=== PATIENT | male | born 1965 ===

== ENCOUNTER 2022-03-04 17:43 | Emergency (ER) ==
[~2022-03-04] VITALS: Ht 167.6 cm; Wt 65.0 kg
[2022-03-04] MEDS ORDERED: ACETAMINOPHEN 500 MG TAB PO ONE (18:15)
[2022-03-04 19:00] LABS: RSV AMPLIFICATION NEGATIVE (NEGATIVE)
== END 2022-03-04 21:18 | disposition left against medical advice (07) ==
LOC: M ED 21:15
DX: Z53.21 Procedure and treatment not carried out due to patient leaving prior to being seen by health care provider (principal)